=== PATIENT | male | born 1995 | race Caucasian/White ===

== ENCOUNTER 2019-11-11 16:22 | Emergency (ER) | payer OTHER ==
[~2019-11-11] VITALS: Ht 185.4 cm; Wt 90.5 kg
[2019-11-11 16:22] VITALS: BP 138/80
[2019-11-11] MEDS ORDERED: LIDOCAINE W/EPINEPHRINE 1% 20ML VIAL As Ordered ONE (16:42)
[2019-11-11] MEDS ORDERED: LIDOCAINE W/EPINEPHRINE 1% 20ML VIAL SC ONE (16:45)
== END 2019-11-11 17:11 | disposition home or self-care (01) ==
LOC: M ED 16:22
DX: S81.811A Laceration without foreign body, right lower leg, initial encounter (principal); W26.8XXA Contact with other sharp object(s), not elsewhere classified, initial encounter; Y92.838 Other recreation area as the place of occurrence of the external cause; Y93.23 Activity, snow (alpine) (downhill) skiing, snowboarding, sledding, tobogganing and snow tubing; Y99.9 Unspecified external cause status; F17.200 Nicotine dependence, unspecified, uncomplicated